=== PATIENT | male | born 1985 | race Caucasian/White ===

== ENCOUNTER 2025-06-01 06:53 | Day surgery (SDC) | payer BC ==
[2025-06-01] MEDS ORDERED: Lactated Ringers 1,000 ML IV ONE (06:54)
[2025-06-01] MEDS ORDERED: Propofol 200 MG/20 ML SDV IV ONE (06:54)
[2025-06-01] MEDS: Lactated Ringers 1,000 ML IV SCH (07:25)
[2025-06-01] MEDS ORDERED: Propofol 200 MG/20 ML SDV ONE (09:37)
== END 2025-06-01 09:28 | disposition home or self-care (01) ==
LOC: DL.ENDO 06:53
PROVIDERS: ATTEND Internal Medicine Gastroenterology
DX: D64.9 Anemia, unspecified (principal); K64.8 Other hemorrhoids; E66.09 Other obesity due to excess calories; Z68.36 Body mass index [BMI] 36.0-36.9, adult; Z79.899 Other long term (current) drug therapy
CPT/HCPCS: 00811; J2704; J7120